=== PATIENT | female | born 1940 | race Caucasian/White ===

== ENCOUNTER 2020-08-04 11:17 | Emergency (ER) | payer MEDICARE, BC ==
[~2020-08-04] VITALS: Ht 157.5 cm; Wt 61.8 kg
[2020-08-04 11:57] VITALS: BP 142/73
[2020-08-04] MEDS ORDERED: AMOX-422 PO (13:14)
[2020-08-04] MEDS ORDERED: AZIT-72 PO (13:14)
== END 2020-08-04 13:40 | disposition home or self-care (01) ==
LOC: ER 11:19
DX: S60.312A Abrasion of left thumb, initial encounter (principal); Z79.2 Long term (current) use of antibiotics; Z79.899 Other long term (current) drug therapy
CPT/HCPCS: 99283

== ENCOUNTER 2022-06-28 09:08 | Inpatient (IN) | payer MEDICARE, BC ==
[2022-06-23 15:35] LABS: BASOPHILS % (AUTO) 0.5 % (0-1); EOSINOPHILS # (AUTO) 0.1 X10'3 (0-0.9); LYMPHOCYTES # (AUTO) 1.2 X10'3 (1.1-4.8); LYMPHOCYTES % (AUTO) 21.2 % (21-51); MEAN CORPUSCULAR HEMOGLOBIN 32.1 PG (27.0-31.0); MEAN CORPUSCULAR HGB CONC 33.8 g/dL (33.0-36.5); MEAN PLATELET VOLUME 7.2 FL (7.4-10.4); MONOCYTES # (AUTO) 0.6 X10'3 (0-0.9); MONOCYTES % (AUTO) 9.9 % (2-12); NEUTROPHILS # (AUTO) 3.7 X10'3 (1.8-7.7); NEUTROPHILS % (AUTO) 66.4 % (42-75); PRE OP HEMATOCRIT 36.8 % (35.0-45.0); PRE OP HEMOGLOBIN 12.4 g/dL (12.0-16.0); PRE OP PLATELET COUNT 260 X10'3 (140-440); RED BLOOD COUNT 3.87 X10'6 (4.20-5.60); RED CELL DISTRIBUTION WIDTH 12.8 % (11.5-14.5)
[2022-06-23 15:46] LABS: PRE OP PROTIME 10.5 SECONDS (9.0-12.0)
[2022-06-23 15:58] LABS: ALBUMIN 3.9 G/DL (3.4-5.0); ALBUMIN/GLOBULIN RATIO 1.3 (1.1-1.5); ALKALINE PHOSPHATASE 38 IU/L (46-116); BLOOD UREA NITROGEN 24 MG/DL (7-18); BUN/CREATININE RATIO 25.3 (6.6-38.0); CALCIUM 8.9 MG/DL (8.5-10.1); CHLORIDE 105 MMOL/L (99-107); CREATININE 0.95 MG/DL (0.40-0.90); PRE OP ALT 22 U/L (30-65); PRE OP ANION GAP 7 (8-16); PRE OP AST 18 U/L (10-37); PRE OP BILIRUB, TOTAL 0.3 MG/DL (0.0-1.0); PRE OP GLUCOSE 82 MG/DL (70-104); PRE OP POTASSIUM 3.6 MMOL/L (3.4-5.1); PRE OP SODIUM 142 MMOL/L (135-145); TOTAL CARBON DIOXIDE 30.3 MMOL/L (24-32); eGFR 56 ML/MIN
[~2022-06-28] VITALS: Ht 157.5 cm; Wt 63.5 kg
[2022-06-28] VITALS (24 sets, daily range): BP systolic 99–140; BP diastolic 41–75
[~2022-06-28 09:08] MED LIST: ACET-2971 PO; ASPI-1071 PO; ATOR10TA70 PO; CA C1TAB95 PO; CELE100C98 PO; CHOL50002 PO; FISH1CAP15 PO; GLUC-95 PO; GUAIFENESIN; HYDR25TA4 PO; LEVO75TA7 PO; MAGN250T11 PO; MELA5TAB12 PO; MULT-1085 PO; OMEP20TA43 PO; REPLENEX PO; UBID1CAP54 PO; VIT1CAPS46 PO; VOLTAREN GEL TOP; [UNRECOGNIZED DRUG - CODE] PO; [UNRECOGNIZED DRUG - OTHER] PO; [UNRECOGNIZED DRUG - OTHER] PO; [UNRECOGNIZED DRUG - OTHER] PO; [UNRECOGNIZED DRUG - OTHER] PO; ceFAZolin inj. 2,000 MG in dextrose 5%-water 100 ML IV ONE; famotidine 20mg tablet PO ONE; ringers solution, lacted 1,000 ML IV SCH; tranexamic acid inj. 1,000 MG in 0.7% saline 100 ML PMX IV ONE; vancomycin/NS 1 GM in NS 250 ML IV ONE
[2022-06-28] MEDS ORDERED: ROPIVAcaine 0.5% (5mg/ml) 30ml vial ONE (09:14)
[2022-06-28] MEDS ORDERED: cloNIDine hcl/PF 100mcg/ml inj ONE (09:14)
[2022-06-28] MEDS ORDERED: ketorolac trometh. 30mg/ml inj. ONE (09:14)
--- NOTE | 2022-06-28 09:15 | NUR ---
CSM: PEDAL PULSES PRESENT AND MARKED. PATIENT STATES SHE DID NOT WATCH THE VIDEO BUT DID READ THE BROCHURE AND USED THE MUPIROCIN OINTMENT. EDUCATED PATIENT ON THE USE OF THE INCENTIVE SPIROMETER AND ITS IMPORTANCE.
[2022-06-28] MEDS ORDERED: vancomycin 1,000mg inj ONE (09:47)
[2022-06-28] MEDS ORDERED: BUPIVAcaine/PF 2.5 mg/ml (0.25%) 30ml vial ONE (10:59)
[2022-06-28] MEDS ORDERED: tetracaine 1% (10mg/ml) pres. free inj. ONE (10:59)
[2022-06-28] MEDS ORDERED: BUPIVACAINE liposomal/PF 13.3 MG/ML vial IM ONE (11:00)
[2022-06-28] MEDS ORDERED: fentaNYL/PF 50MCG/1 ML 2ML syringe ONE (11:02)
[2022-06-28] MEDS ORDERED: MIDAZolam 5mg/ml 2ml vial ONE (11:03)
[2022-06-28] MEDS ORDERED: morphine 2 MG/ML inj. syringe IV PRN (11:55)
[2022-06-28] MEDS ORDERED: ringers solution, lacted 1,000 ML IV SCH (11:55)
[2022-06-28] MEDS ORDERED: meperidine/PF 25mg/ml syringe IV PRN ×3 (11:55)
[2022-06-28] MEDS ORDERED: proCHLORperazine 10 MG/2 ml inj IV PRN (11:55)
[2022-06-28] MEDS ORDERED: morphine 4 MG/ML inj SYRINge IV PRN (11:55)
[2022-06-28] MEDS ORDERED: ondansetron/PF 4mg/2ml inj IV PRN ×2 (11:55→14:00)
[2022-06-28] MEDS ORDERED: propofol inj 20 ML IV ONE ×2 (12:30)
--- NOTE | 2022-06-28 13:41 | NUR ---
Received from OR via hospital bed , accompanied by Anesthesiologist DR ARMENTA and report given by Anesthesiolgist. PT PRESENTS WITH PIV 20G LEFT WRIST, COFFMAN CATHETER, KNEE WRAP WITH NELSON DRESSING AND POWDER PACK. COFFMAN CATHETER WITH 250MLS OUTPUT AND LR RUNNING AT 100MLS/HR. VSS. Addendum: 06/28/22 at 1400 by Silvia Ventura RN, RN Amended: Links added.
[2022-06-28] MEDS ORDERED: bisacodyl 10mg suppository rectal RC PRN (14:00)
[2022-06-28] MEDS ORDERED: magnesium hydroxide 30ml (MOM) UD suspension PO PRN (14:00)
[2022-06-28] MEDS ORDERED: HYDROmorphone inj. 0.5 MG/0.5 ML DISP.SYRIN IV PRN (14:00)
[2022-06-28] MEDS ORDERED: acetaminophen 325mg tablet PO PRN (14:00)
[2022-06-28] MEDS ORDERED: naloxone 0.4 mg/ml inj IV PRN (14:00)
[2022-06-28] MEDS ORDERED: diphenhydrAMINE 25mg capsule PO PRN ×2 (14:00)
--- NOTE | 2022-06-28 15:26 | NUR ---
Patient report received from Silvia BLACK
--- NOTE | 2022-06-28 15:41 | NUR ---
Report called to receiving nurse DENIS BLACK. Transferred via HOSPITAL BED TO ROOM 4020B WITH 2 PT Belonging BAGS. BED IN LOW LOCKED POSITION WITH CALL LIGHT AND TV WITHIN REACH. PT HOOKED UP TO VITALS MONITOR. DENIS BLCAK AT BEDSIDE. Special Issues communicated to receiving nurse. Addendum: 06/28/22 at 1552 by Silvia Ventura RN, RN Amended: Links added.
[2022-06-28] MEDS: ketorolac tromethamine 15mg/ml inj. IV SCH ×2 (16:00→17:22)
[2022-06-28] MEDS: ceFAZolin/D5W- 1GM premix 50 ML IV SCH (16:14)
[2022-06-28] MEDS: potassium Cl 20mEq in NS 1,000 ML IV SCH (16:15)
--- NOTE | 2022-06-28 18:45 | NUR ---
Patient in room ORTHO 4020. I have received report from DENIS BLACK and had the opportunity to ask questions and assume patient care.
[2022-06-28] MEDS ORDERED: vancomycin/NS 1 GM ADD-VANTAGE 250 ML IV SCH (20:00)
[2022-06-28] MEDS ORDERED: sennosides 8.6mg tablet PO SCH (21:00)
[2022-06-28] MEDS ORDERED: Melatonin 3mg tablet PO SCH (21:00)
--- NOTE | 2022-06-28 21:00 | NUR ---
PATIENT COMPLAINING OF PAIN FROM THE COFFMAN AND REQUESTING IT TO BE REMOVED. COFFMAN DISCONTINUED PER PATIENT'S REQUEST. PATIENT FEEL BETTER AFTER REMOVAL OF COFFMAN.
[2022-06-29] MEDS: ceFAZolin/D5W- 1GM premix 50 ML IV SCH (00:26)
[2022-06-29] MEDS: ketorolac tromethamine 15mg/ml inj. IV SCH ×2 (00:30→08:29)
[2022-06-29 02:00] VITALS: BP 125/57
[2022-06-29] MEDS: HYDROcodone/acetaminophen 10/325mg tab PO PRN ×2 (04:41→11:17)
[2022-06-29] MEDS: potassium Cl 20mEq in NS 1,000 ML IV SCH (04:46)
[2022-06-29 06:00] VITALS: BP 121/56
--- NOTE | 2022-06-29 06:28 | NUR ---
Problems reprioritized. Patient report given, questions answered & plan of care reviewed with YUSUF BLACK.
[2022-06-29 06:33] LABS: BASOPHILS % (AUTO) 0.7 % (0-1); EOSINOPHILS # (AUTO) 0.2 X10'3 (0-0.9); EOSINOPHILS % (AUTO) 4.2 % (0-6); HEMOGLOBIN 9.8 g/dl (12.0-16.0); LYMPHOCYTES # (AUTO) 0.7 X10'3 (1.1-4.8); LYMPHOCYTES % (AUTO) 13.8 % (21-51); MEAN CORPUSCULAR HEMOGLOBIN 32.1 PG (27.0-31.0); MEAN CORPUSCULAR HGB CONC 33.6 g/dL (33.0-36.5); MEAN CORPUSCULAR VOLUME 95.4 FL (78-98); MEAN PLATELET VOLUME 7.4 FL (7.4-10.4); MONOCYTES # (AUTO) 0.7 X10'3 (0-0.9); MONOCYTES % (AUTO) 12.6 % (2-12); NEUTROPHILS # (AUTO) 3.6 X10'3 (1.8-7.7); NEUTROPHILS % (AUTO) 68.7 % (42-75); PLATELET COUNT 180 X10'3 (140-440); RED BLOOD COUNT 3.04 X10'6 (4.20-5.60); RED CELL DISTRIBUTION WIDTH 12.5 % (11.5-14.5); WHITE BLOOD COUNT 5.3 X10'3 (4.5-11.0)
[2022-06-29 07:08] LABS: ALANINE AMINOTRANSFERASE 11 U/L (12-78); ALBUMIN 2.8 G/DL (3.4-5.0); ALBUMIN/GLOBULIN RATIO 1.2 (1.1-1.5); ALKALINE PHOSPHATASE 35 IU/L (46-116); ANION GAP 9 (8-16); ASPARTATE AMINO TRANSFERASE 20 U/L (10-37); BILIRUBIN,TOTAL 0.4 MG/DL (0.1-1.0); BLOOD UREA NITROGEN 17 MG/DL (7-18); BUN/CREATININE RATIO 15.5 (6.6-38.0); CALCIUM 7.6 MG/DL (8.5-10.1); CHLORIDE 112 MMOL/L (99-107); GLUCOSE 97 MG/DL (70-104); POTASSIUM 3.7 MMOL/L (3.5-5.1); SODIUM 146 MMOL/L (135-145); TOTAL PROTEIN 5.2 G/DL (6.4-8.2); eGFR 47 ML/MIN
[2022-06-29] MEDS ORDERED: HYDROchlorothiazide 25mg tablet PO SCH (08:00)
[2022-06-29] MEDS ORDERED: aspirin 81mg, enteric-coated 1 TAB TABLET.DR PO SCH (08:00)
[2022-06-29] MEDS ORDERED: levoTHYROXINE 75mcg tablet PO SCH (08:00)
[2022-06-29] MEDS ORDERED: pantoprazole 40mg Tablet.DR PO SCH (08:00)
--- NOTE | 2022-06-29 09:37 | NUR ---
Joint Surgery Consult: Pt s/p R knee surgery this admit per EMR. Pt seen by PIOTR for written/verbal high protein diet ed w/ RD contact information provided. PIOTR encouraged pt to contact dietitian's office if further questions/concerns. Addendum: 06/29/22 at [address] Amended: Links added.
[2022-06-29 10:00] VITALS: BP 105/39
[2022-06-29 14:00] VITALS: BP 103/54
== END 2022-06-29 16:39 | disposition home or self-care (01) | DRG 470 ==
LOC: PAS 09:08 → ORTHO 4S 14:07
PROVIDERS: ADMIT Orthopaedic Surgery; ATTEND Orthopaedic Surgery
PROC: 0SRC0J9 Replacement of Right Knee Joint with Synthetic Substitute, Cemented, Open Approach (ICD-10-PCS; principal; 2022-06-28 11:02)
DX: M17.11 Unilateral primary osteoarthritis, right knee (principal)
CPT/HCPCS: 36415; 80053; 82948; 84443; 85025; 85610; 85730; 86885; 86900; 86901; 87081; 87811; 97110; 97116; 97162; 97530; A6455; A7000; A9272; C1713; C1758; C1776; C9290; G0378; J0690; J0735; J1885; J2250; J2704; J2795; J3010; J3370; J3480; J3490; J7060; J7120